=== PATIENT | female | born 1995 | race Caucasian/White ===

== ENCOUNTER 2018-07-23 23:24 | Emergency (ER) | payer OTHER ==
[2018-07-23 23:31] VITALS: BP 148/101
--- NOTE | 2018-07-23 23:58 | EDPHY ---
H & P Smoking Status: Never smoked Time Seen by Provider: 07/23/18 23:47 HPI/ROS: CHIEF COMPLAINT: Right foot infection HISTORY OF PRESENT ILLNESS: 22-year-old immunocompetent female with no history of chronic wounds or cutaneous MRSA history was seen at urgent care today diagnosed with cellulitis the dorsal right foot which developed more than likely from a blister 2 days ago when she was fishing. She has taken 1 dose of Keflex. She comes to the ER concerned that it may be getting worse. She denies : Fever, chills, nausea, vomiting, flu-like symptoms. She has not been keeping extremity consistently elevated. PHYSICAL EXAM (Prior to examination, patient consented to physical exam, hands were washed and my usual and customary physical exam procedures followed) 1) GENERAL: Well-developed, well-nourished, alert and oriented. Appears to be in no acute distress. 2) HEAD: Normocephalic 3) HEENT: sclera anicteric 4) LUNGS: Breathing comfortably. 5) SKIN: Right dorsum foot central lesion with granulating tissue with halo erythema with no lymphangitic streaking. No crepitus. Soft compartments. DP PT pulses present and brisk. Brisk capillary refill. (Kirit Zelaya) PHYSICIAN DOCUMENTATION: The patient was evaluated and managed by the Physician [facility] Physician. My co- signature indicates that I have reviewed this chart and I agree with the findings and plan of care as documented. I am the secondary supervising physician. (Luisa Hood) Constitutional: Initial Vital Signs Temperature (C) 37.2 C 07/23/18 23:26 Heart Rate 104 H 07/23/18 23:26 Respiratory Rate 18 07/23/18 23:26 Blood Pressure 148/101 H 07/23/18 23:26 O2 Sat (%) 97 07/23/18 23:26 O2 Delivery Mode Room Air Allergies/Adverse Reactions: No Known Allergies Allergy (Unverified 07/23/18 23:25) MDM/Departure - MDM ED Course/Re-evaluation: This patient overall appears well. She has taken 1 dose of her Keflex and notes continued symptoms. There has been no lymphangitic streaking. There is no crepitus. I reviewed her x-ray from urgent care which was negative. Doubt osteomyelitis. Doubt necrotizing fasciitis. At this time I think that further dosages of antibiotics are indicated to see if they are effective or not. She notes no prior history of MRSA and is currently on monotherapy with Keflex which I think is appropriate at this time. I have recommended aggressive elevation of the extremity whenever possible. If any point she develops lymphangitic streaking, fever chills or flu-like symptoms recommend she return to the ER for re-evaluation. (Kirit Zelaya) - Depart Disposition: Home, Routine, Self-Care Clinical Impression: Cellulitis of right foot Condition: Good Instructions: Cellulitis (ED) Additional Instructions: Return to the ER if you develop redness, swelling, discharge, warmth to the wound, red streaks going up your leg, or any other symptoms that concern you. Keep taking her antibiotics until finished and as directed. Keep your foot elevated whenever possible. Stand Alone Forms: Work Excuse Referrals: LACIE Castro. [Clinic] - 07/25/18
== END 2018-07-24 00:13 | disposition home or self-care (01) ==
DX: L03.115 Cellulitis of right lower limb (principal)